=== PATIENT | female | born 1995 | race Caucasian/White ===

== ENCOUNTER → 2021-08-22 | Outpatient (CLI) | payer OTHER ==
[~2021-08-22] MED LIST: CELEXA40 MG PO; PROTONIX40 MG PO; SEROQUEL TAB 2525 MG PO; [UNRECOGNIZED DRUG - OTHER] PO
== END ==
LOC: KOH-I 09:00
DX: R51.9 Headache, unspecified (principal)
CPT/HCPCS: 70551

== ENCOUNTER → 2022-02-06 | Outpatient (CLI) | payer OTHER | LOC: MRI 13:23 | DX: G93.2 Benign intracranial hypertension (principal) | CPT/HCPCS: 70544 ==